=== PATIENT | male | born 1965 | race African-American/Black ===

== ENCOUNTER 2018-02-20 17:44 | Emergency (ER) | payer SELFPAY | END 2018-02-20 18:25 | disposition home or self-care (01) | LOC: ER 17:44 | DX: J32.9 Chronic sinusitis, unspecified (principal); I10 Essential (primary) hypertension | CPT/HCPCS: 99283 ==

== ENCOUNTER 2018-02-26 17:06 | Emergency (ER) | payer SELFPAY | END 2018-02-26 18:27 | disposition home or self-care (01) | LOC: ER 17:06 | DX: R42 Dizziness and giddiness (principal); R51 Headache; R11.0 Nausea; I10 Essential (primary) hypertension | CPT/HCPCS: 99282 ==

== ENCOUNTER 2019-06-17 08:21 | Emergency (ER) | payer BC ==
[~2019-06-17] VITALS: Ht 172.7 cm; Wt 80.5 kg
[~2019-06-17 08:21] MED LIST: AMOX1TAB61 PO; HYDR12.58 PO; MECL25TA3 PO; MELO7.5T29 PO
[2019-06-17] MEDS ORDERED: IV NORMAL SALINE 1000ML BAG 1,000 ML IV SCH (08:36)
[2019-06-17] MEDS ORDERED: MECLIZINE HCL 12.5 MG TABLET. PO ONE (08:45)
[2019-06-17] MEDS ORDERED: ONDANSETRON PF 4 MG/2 ML VIAL. IV ONE (08:45)
[2019-06-17 08:46] LABS: BASO % 1 % (0-3); EOS # 0.1 x10^3/uL (0.0-0.7); EOS % 2 % (0-3); HEMATOCRIT 50.4 % (39.0-53.0); HEMOGLOBIN 16.9 g/dL (13.0-17.5); LYMPH # 1.9 x10^3/uL (1.0-4.8); LYMPH % 34 % (24-48); MEAN CORPUSCULAR HEMOGLOBIN 27 pg (25-35); MEAN CORPUSCULAR HGB CONC 34 g/dL (31-37); MEAN CORPUSCULAR VOLUME 81 fL (79-100); MONO # 0.6 x10^3/uL (0.0-1.1); MONO % 10 % (0-9); NEUT # 3.1 x10^3/uL (1.8-7.7); NEUT % 54 % (31-73); PLATELET COUNT 309 x10^3/uL (140-400); RED BLOOD COUNT 6.19 x10^6/uL (4.30-5.70); RED CELL DISTRIBUTION WIDTH 15.3 % (11.5-14.5); WHITE BLOOD COUNT 5.7 x10^3/uL (4.0-11.0)
--- NOTE | 2019-06-17 08:52 | PHYS DOC ---
Past Medical History Past Medical History: Hypertension, Other Additional Past Medical Histor: BELLS PALSY Past Surgical History: No Surgical History Additional Past Surgical Histo: r knee meniscus removed Alcohol Use: Occasionally Drug Use: None Adult General Chief Complaint Chief Complaint: NAUSEA HPI HPI Patient is a 54 year old male who presents with complaining of nausea. Patient complaining of 3 episodes of nausea and dizziness while she was at work last night and stated with change of position of his head nauseous and dizzy and had drinking to left year. Patient states had episodes of dizziness. Patient said this time his dizziness was different because he had dry mouth.. Patient denies focal neurodeficit, chest pain, shortness of breath, vomiting, diarrhea and constipation, fever and chills, urinary symptom. Review of Systems Review of Systems Constitutional: Denies fever or chills [] Eyes: Denies change in visual acuity, redness, or eye pain [] HENT: Denies nasal congestion or sore throat [] Respiratory: Denies cough or shortness of breath [] Cardiovascular: No additional information not addressed in HPI [] GI: Denies abdominal pain, vomiting, bloody stools or diarrhea , reports nause a[] : Denies dysuria or hematuria [] Musculoskeletal: Denies back pain or joint pain [] Integument: Denies rash or skin lesions [] Neurologic: Denies headache, focal weakness or sensory changes [] Endocrine: Denies polyuria or polydipsia [] All other systems were reviewed and found to be within normal limits, except as documented in this note. Current Medications Current Medications Current Medications Medications (Trade) Dose Ordered Sig/Christy Start Time Stop Time Status Last Admin Dose Admin Meclizine HCl (Antivert) 25 mg 1X ONCE 06/17/19 08:45 06/17/19 08:46 DC 06/17/19 08:49 25 MG Ondansetron HCl (Zofran) 4 mg 1X ONCE 06/17/19 08:45 06/17/19 08:46 DC 06/17/19 08:49 4 MG Sodium Chloride 1,000 ml @ 1,000 mls/hr Q1H 06/17/19 08:36 06/17/19 09:35 DC 06/17/19 08:49 1,000 MLS/HR Allergies Allergies Allergies Coded Allergies Type Severity Reaction Last Updated Verified No Known Drug Allergies 10/19/17 No Physical Exam Physical Exam Constitutional: Well developed, well nourished, mild distress, non-toxic appearance. [] HENT: Normocephalic, atraumatic. Eyes: PERRLA, EOMI, conjunctiva normal, no discharge. [] Neck: Normal range of motion, no tenderness, supple, no stridor. [] Cardiovascular:Heart rate regular rhythm, no murmur [] Lungs & Thorax: Bilateral breath sounds clear to auscultation [] Abdomen: Bowel sounds normal, soft, no tenderness, no masses, no pulsatile masses. [] Skin: Warm, dry, no erythema, no rash. [] Back: No tenderness, no CVA tenderness. [] Extremities: No tenderness, no cyanosis, no clubbing, ROM intact, no edema. [] Neurologic: Alert and oriented X 3, no focal deficits noted. [] Psychologic: Affect normal, judgement normal, mood normal. [] Current Patient Data Vital Signs Vital Signs Date Time Temp Pulse Resp B/P (MAP) Pulse Ox O2 Delivery O2 Flow Rate FiO2 06/17/19 10:19 68 18 141/68 (92) 100 Room Air 06/17/19 08:31 98.3 98.3 Lab Values Laboratory Tests Test 06/17/19 08:38 06/17/19 09:45 White Blood Count 5.7 x10^3/uL (4.0-11.0) Red Blood Count 6.19 x10^6/uL (4.30-5.70) H Hemoglobin 16.9 g/dL (13.0-17.5) Hematocrit 50.4 % (39.0-53.0) Mean Corpuscular Volume 81 fL (79-100) Mean Corpuscular Hemoglobin 27 pg (25-35) Mean Corpuscular Hemoglobin Concent 34 g/dL (31-37) Red Cell Distribution Width 15.3 % (11.5-14.5) H Platelet Count 309 x10^3/uL (140-400) Neutrophils (%) (Auto) 54 % (31-73) Lymphocytes (%) (Auto) 34 % (24-48) Monocytes (%) (Auto) 10 % (0-9) H Eosinophils (%) (Auto) 2 % (0-3) Basophils (%) (Auto) 1 % (0-3) Neutrophils # (Auto) 3.1 x10^3/uL (1.8-7.7) Lymphocytes # (Auto) 1.9 x10^3/uL (1.0-4.8) Monocytes # (Auto) 0.6 x10^3/uL (0.0-1.1) Eosinophils # (Auto) 0.1 x10^3/uL (0.0-0.7) Basophils # (Auto) 0.0 x10^3/uL (0.0-0.2) Sodium Level 143 mmol/L (136-145) Potassium Level 4.2 mmol/L (3.5-5.1) Chloride Level 106 mmol/L (98-107) Carbon Dioxide Level 25 mmol/L (21-32) Anion Gap 12 (6-14) Blood Urea Nitrogen 14 mg/dL (8-26) Creatinine 1.1 mg/dL (0.7-1.3) Estimated GFR (Cockcroft-Gault) 83.8 BUN/Creatinine Ratio 13 (6-20) Glucose Level 90 mg/dL (70-99) Calcium Level 9.6 mg/dL (8.5-10.1) Magnesium Level 2.2 mg/dL (1.8-2.4) Total Bilirubin 0.5 mg/dL (0.2-1.0) Aspartate Amino Transferase (AST) 30 U/L (15-37) Alanine Aminotransferase (ALT) 24 U/L (16-63) Alkaline Phosphatase 71 U/L (46-116) Creatine Kinase 1660 U/L (39-308) H Troponin I Quantitative < 0.017 ng/mL (0.000-0.055) MA-Hsg-L-Type Natriuretic Peptide 25 pg/mL (0-124) Total Protein 7.8 g/dL (6.4-8.2) Albumin 4.4 g/dL (3.4-5.0) Albumin/Globulin Ratio 1.3 (1.0-1.7) Lipase 91 U/L (73-393) Urine Collection Type Unknown Urine Color Yellow Urine Clarity Clear Urine pH 5.0 Urine Specific [place] 1.025 Urine Protein Negative mg/dL (NEG-TRACE) Urine Glucose (UA) Negative mg/dL (NEG) Urine Ketones (Stick) Trace mg/dL (NEG) Urine Blood Negative (NEG) Urine Nitrite Negative (NEG) Urine Bilirubin Negative (NEG) Urine Urobilinogen Dipstick 0.2 mg/dL (0.2 mg/dL) Urine Leukocyte Esterase Negative (NEG) Urine RBC Rare /HPF (0-2) Urine WBC Occ /HPF (0-4) Urine Squamous Epithelial Cells None /LPF Urine Bacteria Few /HPF (0-FEW) Urine Mucus Mod /LPF Laboratory Tests 06/17/19 08:38 Laboratory Tests 06/17/19 08:38 EKG EKG EKG interpreted by me. EKG at 0 836 showed normal sinus rhythm at rate of 88, normal IL and QT intervals, no acute ST-T wave abnormalities. Radiology/Procedures Radiology/Procedures [][address] [address] IMAGING REPORT Signed PATIENT: MEIR CHOU ACCOUNT: [id number] : 1965 LOCATION: ER AGE: 54 SEX: M EXAM STATUS: REG ER ORD. PHYSICIAN: VIKAS WHITMAN MD REASON: dizziness, nausea starting this morning PROCEDURE: CHEST AP ONLY EXAM: AP View of the chest DATE: 06/17/2019 9:06 AM INDICATION: dizziness, nausea starting this morning COMPARISON: 10/19/2017 FINDINGS: The heart is not enlarged. Mediastinal and hilar contours are normal. No focal parenchymal airspace opacity. No pleural effusion or pneumothorax. IMPRESSION: 1. No radiographic evidence for acute cardiopulmonary process. Electronically signed by: Felice Garcia MD (06/17/2019 9:34 AM) [facility] DICTATED and SIGNED BY: FELICE GARCIA MD DATE: 06/17/[address] [place] [id number] IMAGING REPORT Signed PATIENT: MEIR CHOU ACCOUNT: [id number] : 1965 LOCATION: ER AGE: 54 SEX: M EXAM STATUS: REG ER ORD. PHYSICIAN: VIKAS WHITMAN MD REASON: dizziness PROCEDURE: CT HEAD WO CONTRAST CT HEAD WO CONTRAST History: Dizziness Comparison: October 19, 2017 Technique: Noncontrast CT imaging was performed of the head. Exposure: One or more of the following individualized dose reduction techniques were utilized for this examination: 1. Automated exposure control 2. Adjustment of the mA and/or kV according to patient size 3. Use of iterative reconstruction technique. Findings: No acute extra-axial or parenchymal hemorrhage is identified. There is no significant intra-axial mass effect, midline shift, or extra-axial fluid collection. The butler-white differentiation of the major vascular territories is preserved. The ventricles, sulci, and cisterns are within normal limits in size and configuration. The mastoid air cells and the visualized paranasal sinuses are aerated. No acute calvarial abnormality is identified. Impression: 1. No acute intracranial abnormality is identified. Electronically signed by: Zhang Pedroza MD (06/17/2019 9:25 AM) [facility] DICTATED and SIGNED BY: ZHANG PEDROZA MD DATE: 06/17/19924 Course & Med Decision Making Course & Med Decision Making Pertinent Labs and Imaging studies reviewed. (See chart for details) Evaluation of patient in ER showed 54-year-old male patient with history of benign positional vertigo presented to ER with episodes of dizziness since last night. Patient had unremarkable physical exam except for mild anxiety. Patient had elevation of CPK and stated he has a physical work. Patient treated with IV fluid and Zofran and meclizine and felt better. Orthostatic vital signs was negative. I've spoken with the patient and/or caregivers. I've explained the patient's condition, diagnosis and treatment plan based on information available to me at this time. I've answered the patient's and/or caregivers questions and addressed any concerns. The patient and/or caregivers have a good understanding the patient's diagnosis, condition and treatment plan as can be expected at this po int. Vital signs have been stabilized. The patient's condition is stable for discharge from the emergency department. The patient will pursue further outpatient evaluation with her primary care provider or other designated consulting physician as outlined in the discharge instructions. Patient and/or caregivers are agreeable to this plan of care and follow-up instructions have been explained in detail. The patient and/or caregivers have received these instructions in written format and expressed understanding of these discharge instructions. The patient and her caregivers are aware that if any significant change in condition or worsening of symptoms should prompt him to immediately return to this of the closest emergency department. If an emergent department is not readily available I would encourage him to call 911. Heather Disclaimer Heather Disclaimer This electronic medical record was generated, in whole or in part, using a voice recognition dictation system. Departure Departure Impression: Primary Impression: Benign positional vertigo Additional Impressions: Rhabdomyolysis Nausea Disposition: HOME, SELF-CARE (at 1027) Condition: IMPROVED Referrals: UNKNOWN PCP NAME (PCP) Patient Instructions: Benign Positional Vertigo, Nausea, Adult, Rhabdomyolysis Additional Instructions: Drink plenty of liquids Follow-up with your primary care physician in 3-5 days Return to ER if not getting better Scripts Ondansetron Hcl (ZOFRAN) 4 Mg Tablet 1 TAB PO PRN Q6-8HRS for nausea, #12 TAB Prov: VIKAS WHITMAN MD 06/17/19 Meclizine Hcl (MECLIZINE HCL) 25 Mg Tablet 1 TAB PO TID for dizziness, #20 TAB Prov: VIKAS WHITMAN MD 06/17/19 Problem Qualifiers Primary Impression: Benign positional vertigo Laterality: unspecified laterality Qualified Codes: H81.10 - Benign paroxysmal vertigo, unspecified ear Additional Impressions: Rhabdomyolysis Rhabdomyolysis type: non-traumatic Qualified Codes: M62.82 - Rhabdomyolysis VIKAS WHITMAN MD Jun 17, 2019 08:52
[2019-06-17 08:56] LABS: CALCIUM 9.6 mg/dL (8.5-10.1); CREATININE 1.1 mg/dL (0.7-1.3); GFR 83.8; POTASSIUM 4.2 mmol/L (3.5-5.1)
[2019-06-17 09:11] LABS: ALBUMIN 4.4 g/dL (3.4-5.0); ALBUMIN/GLOBULIN RATIO 1.3 (1.0-1.7); MAGNESIUM 2.2 mg/dL (1.8-2.4); TOTAL BILIRUBIN 0.5 mg/dL (0.2-1.0); TOTAL PROTEIN 7.8 g/dL (6.4-8.2)
--- NOTE | 2019-06-17 09:28 | RAD ---
CT HEAD WO CONTRAST History: Dizziness Comparison: October 19, 2017 Technique: Noncontrast CT imaging was performed of the head. Exposure: One or more of the following individualized dose reduction techniques were utilized for this examination: 1. Automated exposure control 2. Adjustment of the mA and/or kV according to patient size 3. Use of iterative reconstruction technique. Findings: No acute extra-axial or parenchymal hemorrhage is identified. There is no significant intra-axial mass effect, midline shift, or extra-axial fluid collection. The butler-white differentiation of the major vascular territories is preserved. The ventricles, sulci, and cisterns are within normal limits in size and configuration. The mastoid air cells and the visualized paranasal sinuses are aerated. No acute calvarial abnormality is identified. Impression: 1. No acute intracranial abnormality is identified. Electronically signed by: Keith Pedroza MD (06/17/2019 9:25 AM) [facility]
--- NOTE | 2019-06-17 09:36 | RAD ---
EXAM: AP View of the chest DATE: 06/17/2019 9:06 AM INDICATION: dizziness, nausea starting this morning COMPARISON: 10/19/2017 FINDINGS: The heart is not enlarged. Mediastinal and hilar contours are normal. No focal parenchymal airspace opacity. No pleural effusion or pneumothorax. IMPRESSION: 1. No radiographic evidence for acute cardiopulmonary process. Electronically signed by: Felice Cade MD (06/17/2019 9:34 AM) [facility]
[2019-06-17 09:57] LABS: BILIRUBIN,URINE NEGATIVE (NEG); CLARITY,URINE CLEAR; COLOR,URINE YELLOW; NITRITE,URINE NEGATIVE (NEG); PROTEIN,URINE NEGATIVE (NEG-TRACE); UROBILINOGEN,URINE 0.2 mg/dL (0.2 mg/dL)
--- NOTE | 2019-06-17 10:13 | EKG ---
[facility] [address] [place] [address] Test Date: 2019-06-17 Test Time: 08:36:19 Pat Name: MEIR CHOU Department: Room: Gender: M Charge Hand: : 1965 Requested By: VIKAS WHITMAN Order Number: [id number] Reading MD: Surinder Brandt MD Measurements Intervals [place] Rate: 88 P: 15 CO: 162 QRS: 52 QRSD: 82 T: 49 QT: 346 QTc: 421 Interpretive Statements SINUS RHYTHM Electronically Signed On 06-22-2019 9:47:28 CDT by Surinder Brandt MD
[2019-06-17 10:14] LABS: BACTERIA,URINE FEW /HPF (0-FEW); RBC,URINE RARE /HPF (0-2); WBC,URINE OCC /HPF (0-4)
[2019-06-17 10:19] VITALS: BP 141/68
[2019-06-17] MEDS ORDERED: MECL25TA3 PO (10:30)
[2019-06-17] MEDS ORDERED: ONDA4TAB7 PO (10:30)
== END 2019-06-17 10:46 | disposition home or self-care (01) ==
LOC: ER 08:21
DX: H81.12 Benign paroxysmal vertigo, left ear (principal); M62.82 Rhabdomyolysis; R11.0 Nausea
CPT/HCPCS: 36415; 70450; 71045; 80053; 81001; 82550; 83690; 83735; 83880; 84484; 85025; 93005; 96374; 99285; J2405; J7030; J8597

== ENCOUNTER 2019-09-15 09:38 | Emergency (ER) | payer BC, OTHER ==
[~2019-09-15] VITALS: Ht 172.7 cm; Wt 83.9 kg
[~2019-09-15 09:38] MED LIST changes: +ONDA4TAB7 PO
[2019-09-15 09:54] VITALS: BP 120/83
--- NOTE | 2019-09-15 10:30 | PHYS DOC ---
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 Patient has 2+ swelling to the dorsal hand and dorsal wrist. Patient rates his pain a 6 out of 10. Patient states he continued working last night. He states that they cleaned the abrasion on his dorsal wrist and applied antibiotic ointment. Patient states his last tetanus shot was in 2017. Review of Systems Review of Systems Musculoskeletal:Right wrist pain and hand pain. Denies back pain or joint pain [] Integument: abrasion to right dorsal wrist. Denies rash or skin lesions [] All other systems were reviewed and found to be within normal limits, except as documented in this note. Allergies Allergies Allergies Coded Allergies Type Severity Reaction Last Updated Verified No Known Drug Allergies 10/19/17 No Physical Exam Physical Exam Constitutional: Well developed, well nourished, no acute distress, non-toxic appearance. [] Skin: Abrasion to right dorsal wrist pain. Warm, dry, no erythema, no rash. [] Extremities: Right dorsal hand and right dorsal wrist tenderness, no cyanosis, no clubbing, ROM intact, Right dorsal wrist and pain 2+ edema. [] Neurologic: Alert and oriented X 3, normal motor function, normal sensory function, no focal deficits noted. [] Psychologic: Affect normal, judgement normal, mood normal. [] Current Patient Data Vital Signs Vital Signs Date Time Temp Pulse Resp B/P (MAP) Pulse Ox O2 Delivery O2 Flow Rate FiO2 09/15/19 10:17 98.1 82 18 120/83 (95) 99 Room Air 98.1 EKG EKG [] Radiology/Procedures Radiology/Procedures [] Impressions: [facility] [address] [place] [address] IMAGING REPORT Signed PATIENT: MEIR CHOU ACCOUNT: [id number] : 1965 LOCATION: ER AGE: 54 SEX: M EXAM STATUS: REG ER ORD. PHYSICIAN: TAJ MELGAR APRN REASON: right hand pain, work related injury x1 day PROCEDURE: HAND RIGHT 3V Exam performed: Right hand and wrist 3 views. Indication: Right hand and wrist injury at work one day ago Date of Service: 09/15/2019 Comparison: None available Findings: AP, lateral and oblique views of the right hand and wrist are obtained. There is a mild cortical offset in the base of distal phalanx of the right hand with associated soft tissue swelling. No soft tissue foreign body is seen. AP, lateral and oblique views of the right wrist demonstrates normal alignment of the wrist joint . There is no acute fracture or dislocation. There is mild soft tissue swelling, no definite foreign body is seen. Impression: Mild cortical offset base of first distal phalanx representing a fracture. Acuity unknown. Correlate clinically. No acute abnormality seen in the right wrist Electronically signed by: Aida Dumont MD (09/15/2019 11:36 AM) [facility] DICTATED and SIGNED BY: AIDA DUMONT MD DATE: 09/15/19 1136 Course & Med Decision Making Course & Med Decision Making Alert and oriented. Patient can move at the wrist with full range of motion but it is painful. Patient can make a fist with his hand. Patient denies any numbness or tingling. Patient has tenderness to the dorsal hand with 2+ swelling and tenderness to the dorsal wrist that also has 2+ swelling. The abrasion to the dorsal wrist is approximately 4.5 inches long and 2 inches wide. No signs of infection. There is no drainage or bleeding. Radial pulses strong and present. Cap refill is less than 3 seconds. X-ray shows Mild cortical offset base of first distal phalanx representing a fracture. Acuity unknown. Correlate clinically. Aluminum form splint is placed on thumb. Patient is told to keep it on for the next 4 weeks and uses follow-up with his primary care doctor or orthopedic doctor. I have prescribed him antibiotic ointment to apply twice a day to his abrasion and he is to keep it clean and covered. Dragon Disclaimer Dragon Disclaimer This electronic medical record was generated, in whole or in part, using a voice recognition dictation system. Departure Departure Impression: Primary Impression: Hand pain, right Additional Impressions: Wrist pain, right Abrasion Phalanx, distal fracture of finger Disposition: 01 HOME, SELF-CARE Condition: IMPROVED Referrals: UNKNOWN PCP NAME (PCP) MARIE NAM MD Patient Instructions: Finger Fracture (Phalangeal)-[facility] Additional Instructions: Follow-up with primary care or orthopedic this coming week if needed. Keep the splint applied for the next 4 weeks for the thumb to heal. Scripts Ibuprofen (IBUPROFEN) 600 Mg Tablet 600 MG PO PRN Q6HRS PRN for INFLAMMATION for 7 Days, #25 TAB Prov: TAJ MELGAR APRN 09/15/19 Neomy Sulf/Bacitrac Zn/Poly (ANTIBIOTIC OINTMENT) 28 Gm Oint...g. 28 GM TP BID for 7 Days, #1 MISC Prov: TAJ MELGAR APRN 09/15/19 Problem Qualifiers Additional Impressions: Phalanx, distal fracture of finger Encounter type: initial encounter Finger: thumb Fracture type: closed Fracture alignment: nondisplaced Laterality: right Qualified Codes: S62.524A - Nondisplaced fracture of distal phalanx of right thumb, initial encounter for closed fracture TAJ MELGAR APRN Sep 15, 2019 10:30
--- NOTE | 2019-09-15 11:39 | RAD ---
Exam performed: Right hand and wrist 3 views. Indication: Right hand and wrist injury at work one day ago Date of Service: 09/15/2019 Comparison: None available Findings: AP, lateral and oblique views of the right hand and wrist are obtained. There is a mild cortical offset in the base of distal phalanx of the right hand with associated soft tissue swelling. No soft tissue foreign body is seen. AP, lateral and oblique views of the right wrist demonstrates normal alignment of the wrist joint . There is no acute fracture or dislocation. There is mild soft tissue swelling, no definite foreign body is seen. Impression: Mild cortical offset base of first distal phalanx representing a fracture. Acuity unknown. Correlate clinically. No acute abnormality seen in the right wrist Electronically signed by: Aida Dumont MD (09/15/2019 11:36 AM) [facility]
[2019-09-15] MEDS ORDERED: NEOM28OI31 TP (11:49)
[2019-09-15] MEDS ORDERED: IBUP-1007 PO (11:49)
== END 2019-09-15 12:15 | disposition home or self-care (01) ==
LOC: ER 09:38
DX: S62.524A Nondisplaced fracture of distal phalanx of right thumb, initial encounter for closed fracture (principal); M79.641 Pain in right hand; M25.531 Pain in right wrist; S60.811A Abrasion of right wrist, initial encounter; I10 Essential (primary) hypertension; W31.89XA Contact with other specified machinery, initial encounter; Y93.89 Activity, other specified; Y92.89 Other specified places as the place of occurrence of the external cause; Y99.8 Other external cause status
CPT/HCPCS: 29130; 73110; 73130; 99284

== ENCOUNTER 2019-12-24 10:05 | Inpatient (IN) | payer BC, OTHER ==
[~2019-12-24] VITALS: Ht 172.7 cm; Wt 96.4 kg
[~2019-12-24 10:05] MED LIST changes: +IBUP-1007 PO; +MECL-75 PO; -MECL25TA3 PO; +NEOM28OI31 TP
--- NOTE | 2019-12-24 11:08 | PHYS DOC ---
Past Medical History Past Medical History: Hypertension, Other Additional Past Medical Histor: BELLS PALSY Past Surgical History: No Surgical History Additional Past Surgical Histo: r knee meniscus removed Smoking Status: Current Every Day Smoker Alcohol Use: Occasionally Drug Use: None Adult General Chief Complaint Chief Complaint: DIARRHEA HPI HPI Patient is a 54 year old m p/w diarrhea profuse nonbloody last night it was every thirty minutes has been sweating on and off for a week has a dry mouth no vomiting. diarrhea is still there now but not as bad as it was before no abdominal pain also reports chest pain usually at work, this past week, soreness across the chest 4 min at a time radiates both shoulders, comes and goes usually when sta nding up or with exerting himself and sweating happened with the chest pain. Last had of this morning pmh: htn, tobacco one pack per week. family history: lela got diabetes but no cad that he knows of meds:lisinopril not taking it like he should pmd: [facility] waiting to get a new one. Review of Systems Review of Systems Constitutional: Denies fever or chills [] Eyes: Denies change in visual acuity, redness, or eye pain [] HENT: Denies nasal congestion or sore throat [] Respiratory: Denies cough or shortness of breath [] Cardiovascular: No additional information not addressed in HPI [] GI: Denies abdominal pain, nausea, vomiting, bloody stools or diarrhea [] : Denies dysuria or hematuria [] Musculoskeletal: Denies back pain or joint pain [] Integument: Denies rash or skin lesions [] Neurologic: Denies headache, focal weakness or sensory changes [] Endocrine: Denies polyuria or polydipsia [] All other systems were reviewed and found to be within normal limits, except as documented in this note. Current Medications Current Medications Current Medications Medications (Trade) Dose Ordered Sig/Christy Start Time Stop Time Status Last Admin Dose Admin Aspirin (Children'S Aspirin) 324 mg 1X ONCE 12/24/19 11:45 12/24/19 11:46 DC 12/24/19 11:40 324 MG Ondansetron HCl (Zofran) 4 mg 1X ONCE 12/24/19 11:15 12/24/19 11:16 DC 12/24/19 11:34 4 MG Sodium Chloride 1,000 ml @ 1,000 mls/hr 1X ONCE 12/24/19 11:15 12/24/19 12:14 DC 12/24/19 11:34 1,000 MLS/HR Allergies Allergies Allergies Coded Allergies Type Severity Reaction Last Updated Verified No Known Drug Allergies 10/19/17 No Physical Exam Physical Exam Constitutional: Well developed, well nourished, no acute distress, non-toxic appearance. [] HENT: Normocephalic, atraumatic, bilateral external ears normal, oropharynx moist, no oral exudates, nose normal. [] Eyes: PERRLA, EOMI, conjunctiva normal, no discharge. [] Neck: Normal range of motion, no tenderness, supple, no stridor. [] Cardiovascular:Heart rate regular rhythm, no murmur [] Lungs & Thorax: Bilateral breath sounds clear to auscultation [] Abdomen: Bowel sounds normal, soft, no tenderness, no masses, no pulsatile masses. [] Skin: Warm, dry, no erythema, no rash. [] Back: No tenderness, no CVA tenderness. [] Extremities: No tenderness, no cyanosis, no clubbing, ROM intact, no edema. [] Neurologic: Alert and oriented X 3, normal motor function, normal sensory func tion, no focal deficits noted. [] Psychologic: Affect normal, judgement normal, mood normal. [] Current Patient Data Vital Signs Vital Signs Date Time Temp Pulse Resp B/P (MAP) Pulse Ox O2 Delivery O2 Flow Rate FiO2 12/24/19 12:46 58 22 138/84 (102) 97 12/24/19 11:06 98.0 Room Air 98.0 Lab Values Laboratory Tests Test 12/24/19 11:35 12/24/19 12:10 Influenza Type A Antigen Negative (NEGATIVE) Influenza Type B Antigen Negative (NEGATIVE) White Blood Count 4.1 x10^3/uL (4.0-11.0) Red Blood Count 5.72 x10^6/uL (4.30-5.70) H Hemoglobin 15.8 g/dL (13.0-17.5) Hematocrit 47.3 % (39.0-53.0) Mean Corpuscular Volume 83 fL (79-100) Mean Corpuscular Hemoglobin 28 pg (25-35) Mean Corpuscular Hemoglobin Concent 33 g/dL (31-37) Red Cell Distribution Width 14.9 % (11.5-14.5) H Platelet Count 295 x10^3/uL (140-400) Neutrophils (%) (Auto) 42 % (31-73) Lymphocytes (%) (Auto) 44 % (24-48) Monocytes (%) (Auto) 9 % (0-9) Eosinophils (%) (Auto) 5 % (0-3) H Basophils (%) (Auto) 1 % (0-3) Neutrophils # (Auto) 1.7 x10^3/uL (1.8-7.7) L Lymphocytes # (Auto) 1.8 x10^3/uL (1.0-4.8) Monocytes # (Auto) 0.4 x10^3/uL (0.0-1.1) Eosinophils # (Auto) 0.2 x10^3/uL (0.0-0.7) Basophils # (Auto) 0.0 x10^3/uL (0.0-0.2) Prothrombin Time 12.7 SEC (11.7-14.0) Prothrombin Time INR 1.0 (0.8-1.1) Activated Partial Thromboplast Time 25 SEC (24-38) Sodium Level 138 mmol/L (136-145) Potassium Level 5.0 mmol/L (3.5-5.1) Chloride Level 104 mmol/L (98-107) Carbon Dioxide Level 27 mmol/L (21-32) Anion Gap 7 (6-14) Blood Urea Nitrogen 17 mg/dL (8-26) Creatinine 0.9 mg/dL (0.7-1.3) Estimated GFR (Cockcroft-Gault) 105.6 BUN/Creatinine Ratio 19 (6-20) Glucose Level 114 mg/dL (70-99) H Calcium Level 8.3 mg/dL (8.5-10.1) L Total Bilirubin 0.3 mg/dL (0.2-1.0) Aspartate Amino Transferase (AST) 26 U/L (15-37) Alanine Aminotransferase (ALT) 40 U/L (16-63) Alkaline Phosphatase 72 U/L (46-116) Troponin I Quantitative < 0.017 ng/mL (0.000-0.055) Total Protein 6.5 g/dL (6.4-8.2) Albumin 3.4 g/dL (3.4-5.0) Albumin/Globulin Ratio 1.1 (1.0-1.7) Lipase 122 U/L (73-393) Laboratory Tests 12/24/19 12:10 Laboratory Tests 12/24/19 12:10 EKG EKG EKG shows a normal sinus rhythm rate of 79 and noted some borderline ST elevation in 1 and aVL with flipped T waves in 3 and aVF which is different compared to June 17, 2019. I did briefly review this EKG with Dr. Pollock who was down in the emergency room for a different patient. He recommended heparin and formal cardiology consultation[] Radiology/Procedures Radiology/Procedures [] Impressions: Findings: No consolidation or pleural effusion. Normal heart size. No pneumothorax. Impression: 1. No acute cardiopulmonary process. Electronically signed by: Mono Villarreal DO (12/24/2019 12:24 PM) [id number] DICTATED and SIGNED BY: MONO VILLARREAL DO DATE: 12/24/19 1224 Course & Med Decision Making Course & Med Decision Making Pertinent Labs and Imaging studies reviewed. (See chart for details) []Heart score is a H2 e 1 A1 r 1T0 equals 5 Patient is currently chest pain-free in the emergency room EKG is different from prior. Think he warrants stress testing given his history and EKG changes. Of note he did initially complain of some diarrhea although after I sat with him for several minutes he seemed to be more concerned about the chest pain actually . Discussed with Dr. Funes for admission Dragon Disclaimer Dragon Disclaimer This electronic medical record was generated, in whole or in part, using a voice recognition dictation system. Departure Departure Impression: Primary Impression: Chest pain Additional Impression: Diarrhea Disposition: ADMITTED INPATIENT Admitting Physician: HIMS Condition: STABLE Referrals: UNKNOWN PCP NAME (PCP) Problem Qualifiers ЕЛЕНА JONES MD Dec 24, 2019 11:08
[2019-12-24] MEDS ORDERED: IV NORMAL SALINE 1000ML BAG 1,000 ML IV ONE (11:15)
[2019-12-24] MEDS ORDERED: ONDANSETRON PF 4 MG/2 ML VIAL. IV ONE (11:15)
[2019-12-24] MEDS ORDERED: ASPIRIN CHEWABLE 81 MG TABLET. PO ONE (11:45)
[2019-12-24 12:16] LABS: INFLUENZA A PATIENT NEGATIVE (NEGATIVE); INFLUENZA B PATIENT NEGATIVE (NEGATIVE)
--- NOTE | 2019-12-24 12:23 | EKG ---
[facility] [address] [place] [address] Test Date: 2019-12-24 Test Time: 11:19:54 Pat Name: MEIR CHOU Department: Room: Gender: M Van Owner Operator: : 1965 Requested By: ЕЛЕНА JONES Order Number: [id number] Reading MD: Surinder Brandt MD Measurements Intervals [place] Rate: 78 P: 36 WA: 180 QRS: 0 QRSD: 80 T: 4 QT: 358 QTc: 411 Interpretive Statements SINUS RHYTHM Electronically Signed On 12-24-2019 15:44:25 [employer]ICK [employer]LOAD[employer] TENDER by Surinder Brandt MD
[2019-12-24 12:24] LABS: BASO % 1 % (0-3); EOS # 0.2 x10^3/uL (0.0-0.7); EOS % 5 % (0-3); HEMATOCRIT 47.3 % (39.0-53.0); HEMOGLOBIN 15.8 g/dL (13.0-17.5); LYMPH # 1.8 x10^3/uL (1.0-4.8); LYMPH % 44 % (24-48); MEAN CORPUSCULAR HEMOGLOBIN 28 pg (25-35); MEAN CORPUSCULAR HGB CONC 33 g/dL (31-37); MEAN CORPUSCULAR VOLUME 83 fL (79-100); MONO # 0.4 x10^3/uL (0.0-1.1); MONO % 9 % (0-9); NEUT # 1.7 x10^3/uL (1.8-7.7); NEUT % 42 % (31-73); PLATELET COUNT 295 x10^3/uL (140-400); RED BLOOD COUNT 5.72 x10^6/uL (4.30-5.70); RED CELL DISTRIBUTION WIDTH 14.9 % (11.5-14.5); WHITE BLOOD COUNT 4.1 x10^3/uL (4.0-11.0)
--- NOTE | 2019-12-24 12:27 | RAD ---
PORTABLE CHEST 1V History: Chest pain Comparison: June 17, 2019 Findings: No consolidation or pleural effusion. Normal heart size. No pneumothorax. Impression: 1. No acute cardiopulmonary process. Electronically signed by: Mono Villarreal DO (12/24/2019 12:24 PM) [id number]
[2019-12-24 12:44] LABS: CALCIUM 8.3 mg/dL (8.5-10.1); CREATININE 0.9 mg/dL (0.7-1.3); GFR 105.6
[2019-12-24 12:54] LABS: ALBUMIN 3.4 g/dL (3.4-5.0); ALBUMIN/GLOBULIN RATIO 1.1 (1.0-1.7); TOTAL BILIRUBIN 0.3 mg/dL (0.2-1.0); TOTAL PROTEIN 6.5 g/dL (6.4-8.2)
[2019-12-24] MEDS ORDERED: HEPARIN for IV BOLUS 10,000 UNIT/10 ML VIAL. IV PRN (13:15)
[2019-12-24] MEDS ORDERED: HEPARIN for IV BOLUS 10,000 UNIT/10 ML VIAL. IV ONE (13:15)
[2019-12-24] MEDS ORDERED: HEPARIN 25,000UTS/250ML PREMIX 250 ML IV PRN (13:15)
[2019-12-24] MEDS ORDERED: ANTI-COAG MONITOR BY PHARMACY. MC PRN (13:30)
[2019-12-24 13:47] LABS: PROTHROMBIN TIME PATIENT 12.7 SEC (11.7-14.0)
--- NOTE | 2019-12-24 14:07 | PDOC2 ---
ALYSSA DAMIAN ANIMAL CARE ATTENDANT 12/24/19 1407: CARDIAC CONSULT DATE OF CONSULT Date of Consult DATE: 12/24/19 TIME: 14:03 REASON FOR CONSULT Reason for Consult: Chest pain REFERRING PHYSICIAN Referring Physician: Dr. Cornejo SOURCE Source: Chart review, Patient HISTORY OF PRESENT ILLNESS HISTORY OF PRESENT ILLNESS This is a 54 yo male who presented secondary to diarrhea. Also reports intermittent pain across his upper chest pain and aching in his bilateral upper arms for the last week, which prompted this consult. Has also been more diaphoretic for the last week. Developed diarrhea yesterday, which prompted him to go to the ED for further evaluation and treatment. Patient reports aching pain across upper chest lasts for about 3-4 minutes and resolved without intervention. Seems to be worse when he wakes up in the morning. No specific precipitation or worsening factors. No shortness of breath, dizziness, or nausea/vomiting. PAST MEDICAL HISTORY Cardiovascular: HTN CENTRAL NERVOUS SYSTEM: Other (Moncure Palsy ) Musculoskeletal: Osteoarthritis PAST SURGICAL HISTORY Past Surgical History: No pertinent history FAMILY HISTORY Family History: Diabetes, Heart Disease (mom) SOCIAL HISTORY Smoke: No ALCOHOL: none Drugs: None Lives: with Family CURRENT MEDICATIONS CURRENT MEDICATIONS Current Medications Medications (Trade) Dose Ordered Sig/Christy Route PRN Reason Start Time Stop Time Status Last Admin Dose Admin Sodium Chloride 1,000 ml @ 1,000 mls/hr 1X ONCE IV 12/24/19 11:15 12/24/19 12:14 DC 12/24/19 11:34 Ondansetron HCl (Zofran) 4 mg 1X ONCE IV 12/24/19 11:15 12/24/19 11:16 DC 12/24/19 11:34 Aspirin (Children'S Aspirin) 324 mg 1X ONCE PO 12/24/19 11:45 12/24/19 11:46 DC 12/24/19 11:40 ALLERGIES ALLERGIES: Coded Allergies: No Known Drug Allergies (Unverified , 10/19/17) ROS Review of System 14 point ROS conducted with pertinent positives noted above in HPI PHYSICAL EXAM General: Alert, Oriented X3, Cooperative HEENT: Atraumatic Lungs: Clear to auscultation, Normal air movement Heart: Regular rate, Normal S1, Normal S2 Abdomen: Soft, No tenderness Extremities: No edema, Normal pulses Skin: No significant lesion Neuro: Normal speech, Sensation intact Psych/Mental Status: Mental status NL, Mood NL MUSCULOSKELETAL: Osteoarthritic changes both hands VITALS/I&O VITALS/I&O: Vital Signs Date Time Temp Pulse Resp B/P (MAP) Pulse Ox O2 Delivery O2 Flow Rate FiO2 12/24/19 12:46 58 22 138/84 (102) 97 12/24/19 11:06 98.0 Room Air 98.0 LABS Lab: Laboratory Tests Test 12/24/19 11:35 12/24/19 12:10 Influenza Type A Antigen Negative (NEGATIVE) Influenza Type B Antigen Negative (NEGATIVE) White Blood Count 4.1 x10^3/uL (4.0-11.0) Red Blood Count 5.72 x10^6/uL (4.30-5.70) H Hemoglobin 15.8 g/dL (13.0-17.5) Hematocrit 47.3 % (39.0-53.0) Mean Corpuscular Volume 83 fL (79-100) Mean Corpuscular Hemoglobin 28 pg (25-35) Mean Corpuscular Hemoglobin Concent 33 g/dL (31-37) Red Cell Distribution Width 14.9 % (11.5-14.5) H Platelet Count 295 x10^3/uL (140-400) Neutrophils (%) (Auto) 42 % (31-73) Lymphocytes (%) (Auto) 44 % (24-48) Monocytes (%) (Auto) 9 % (0-9) Eosinophils (%) (Auto) 5 % (0-3) H Basophils (%) (Auto) 1 % (0-3) Neutrophils # (Auto) 1.7 x10^3/uL (1.8-7.7) L Lymphocytes # (Auto) 1.8 x10^3/uL (1.0-4.8) Monocytes # (Auto) 0.4 x10^3/uL (0.0-1.1) Eosinophils # (Auto) 0.2 x10^3/uL (0.0-0.7) Basophils # (Auto) 0.0 x10^3/uL (0.0-0.2) Prothrombin Time 12.7 SEC (11.7-14.0) Prothrombin Time INR 1.0 (0.8-1.1) Activated Partial Thromboplast Time 25 SEC (24-38) Sodium Level 138 mmol/L (136-145) Potassium Level 5.0 mmol/L (3.5-5.1) Chloride Level 104 mmol/L (98-107) Carbon Dioxide Level 27 mmol/L (21-32) Anion Gap 7 (6-14) Blood Urea Nitrogen 17 mg/dL (8-26) Creatinine 0.9 mg/dL (0.7-1.3) Estimated GFR (Cockcroft-Gault) 105.6 BUN/Creatinine Ratio 19 (6-20) Glucose Level 114 mg/dL (70-99) H Calcium Level 8.3 mg/dL (8.5-10.1) L Total Bilirubin 0.3 mg/dL (0.2-1.0) Aspartate Amino Transferase (AST) 26 U/L (15-37) Alanine Aminotransferase (ALT) 40 U/L (16-63) Alkaline Phosphatase 72 U/L (46-116) Troponin I Quantitative < 0.017 ng/mL (0.000-0.055) Total Protein 6.5 g/dL (6.4-8.2) Albumin 3.4 g/dL (3.4-5.0) Albumin/Globulin Ratio 1.1 (1.0-1.7) Lipase 122 U/L (73-393) Laboratory Tests 12/24/19 12:10 Laboratory Tests 12/24/19 12:10 ASSESSMENT/PLAN ASSESSMENT/PLAN 1. Chest pain, atypical. Initial troponin negative. 2. Hypertension; controlled overall 3. Persistent diarrhea Recommendations Lipids, TSH Trend troponin Baseline echo to assess LV systolic function ASA Discontinue heparin gtt Will plan for outpatient ischemic evaluation and followup. KYRA LI MD 12/25/19 0939: CARDIAC CONSULT ASSESSMENT/PLAN ASSESSMENT/PLAN Late entry for 12/24/2019 Patient seen and examined. Agree with above nurse practitioner note. No significant cardiac chest pain. It appears to be quite atypical but given his multiple risk factors could consider outpatient evaluation but certainly does not merit any intravenous anticoagulation at this time. EKG is unremarkable. ALYSSA DAMIAN APRN Dec 24, 2019 14:07 KYRA LI MD Dec 25, 2019 09:39
--- NOTE | 2019-12-24 17:06 | HP ---
ADMIT DATE: 12/24/2019 CHIEF COMPLAINT: Diarrhea. HISTORY OF PRESENT ILLNESS: The patient is a pleasant 54-year-old male who presented to the ER with diarrhea, has been occurring since last night about every 30 minutes. He has some associated sweating and a dry mouth. He also has developed some chest pain, rates all of his symptoms at 7/10, described as irritating. Food makes it worse and sitting still makes it better. He tried taking some [id number] meds that did not help. We are going to admit the patient with consultation to Cardiology. PAST MEDICAL HISTORY: Hypertension, Scott's palsy, right knee meniscus removal. ALLERGIES: None. FAMILY HISTORY: Coronary artery disease. SOCIAL HISTORY: Does not drink, smoke or take drugs. MEDICATIONS: Reviewed, please refer to the MRAD. REVIEW OF SYSTEMS: GENERAL: No history of weight change, weakness or fevers. SKIN: No bruising, hair changes or rashes. EYES: No blurred, double or loss of vision. NOSE AND THROAT: No history of nosebleeds, hoarseness or sore throat. HEART: He complains of chest pain. LUNGS: Denies cough, hemoptysis, wheezing or shortness of breath. GASTROINTESTINAL: He complains of diarrhea. GENITOURINARY: No history of frequency, urgency, hesitancy or nocturia. NEUROLOGIC: Denies history of numbness, tingling, tremor or weakness. PSYCHIATRIC: No history of panic, anxiety or depression. ENDOCRINE: No history of heat or cold intolerance, polyuria or polydipsia. EXTREMITIES: Denies muscle weakness, joint pain, pain on walking or stiffness. PHYSICAL EXAMINATION: VITALS: Within normal limits and are stable. GENERAL: No apparent distress. Alert and oriented. HEENT: Normal cephalic atraumatic, external auditory canals are patent EYES: Extraocular muscles are intact, pupils are equally round and reactive to light and accommodation MUSKULOSKELETAL: Well developed, well nourished, good range of motion ENDOCRINE: No thyromegaly was palpated LYMPHATICS: No cervical chain or axillary nodes were noted HEMATOPOIETIC: No bruising NECK: Supple, no JVD, no thyromegaly was noted. LUNGS: Clear to auscultation in all lung sauceda without rhonchi or wheezing. HEART: RRR, S1, S2 present. Peripheral pulses intact, no obvious murmurs were noted. ABDOMEN: Soft, nontender. Positive bowel sounds no organomegaly, normal bowel sounds. EXTREMITIES: Without any cyanosis, clubbing, or edema. Pedal pulses intact, Homans sign is negative. NEUROLOGIC: Normal speech, normal tone. A and O x3, moves all extremities, no obvious focal deficits. PSYCHIATRIC: Normal affect, normal mood. Stable. SKIN: No ulcerations or rashes, good skin turgor, no jaundice. VASCULAR: Good capillary refill, neurovascular bundle appears to be intact. LABORATORY DATA: Hemoglobin is 15.8. Troponin is 0. ASSESSMENT AND PLAN: Chest pain and diarrhea. The patient will be admitted. We will consult Cardiology, serial enzymes, serial EKGs, cardiac monitoring, home meds. Deep venous thrombosis prophylaxis. Full code. P.r.n. Imodium. GORDY LINDSEY DO DR: VIPUL/jeannie JOB#: [id number] / [id number]
[2019-12-24 17:30] VITALS: BP 136/97
[2019-12-24 19:10] VITALS: BP 136/79
[2019-12-24 23:40] VITALS: BP 139/85
[2019-12-25 03:30] VITALS: BP 140/83
[2019-12-25] MEDS ORDERED: MORPHINE SULFATE 2 MG/ML VIAL. IV PRN (04:00)
[2019-12-25 05:02] LABS: HEMATOCRIT 45.9 % (39.0-53.0); HEMOGLOBIN 15.4 g/dL (13.0-17.5); RED BLOOD COUNT 5.6 x10^6/uL (4.30-5.70); RED CELL DISTRIBUTION WIDTH 14.8 % (11.5-14.5); WHITE BLOOD COUNT 3.9 x10^3/uL (4.0-11.0)
[2019-12-25 05:39] LABS: CHOLESTEROL 193 mg/dL (0-200); HDLC 25 mg/dL (40-60); TRIGLYCERIDES 938 mg/dL (0-150); VLDLC 188 mg/dL (0-40)
[2019-12-25 05:43] LABS: CHOLESTEROL/HDL RATIO 7.7
[2019-12-25 07:00] VITALS: BP 153/104
[2019-12-25 11:00] VITALS: BP 148/94
--- NOTE | 2019-12-25 11:09 | PDOC ---
PROGRESS NOTES History of Present Illness History of Present Illness DISCHARGE DX Chest pain diarrhea. MORBID OBESITY left ventricular systolic function is normal.Ejection Fraction is 55-60%.normal LV segmental wall motion. admitted. PLAN consult Cardiology, Will start fenofibrate, statin therapy Outpatient MPI arranged Follow up with Dr. Brandt as scheduled serial enzymes, NEG serial EKGs, cardiac monitoring, home meds. Deep venous thrombosis prophylaxis. Full code. P.r.n. Imodium. Vitals Vitals Vital Signs Date Time Temp Pulse Resp B/P (MAP) Pulse Ox O2 Delivery O2 Flow Rate FiO2 12/25/19 07:00 96.3 73 18 153/104 (120) 98 Room Air 96.3 Physical Exam General: Alert, Oriented X3, Cooperative, No acute distress Heart: Regular rate, Normal S1, Normal S2 Lungs: Clear Abdomen: Soft, No tenderness Extremities: No cyanosis, No edema, Normal pulses Skin: No significant lesion Labs LABS APPROVED REPORT EXAM: Two-dimensional and M-mode echocardiogram with Doppler and color Doppler. Other Information Quality : Average HR: 70bpm Rhythm : NSR INDICATION Chest Pain 2D DIMENSIONS Left Atrium(2D) 3.4 (1.6-4.0cm) IVSd 1.3 (0.7-1.1cm) Aortic Root(2D) 3.3 (2.0-3.7cm) LVDd 4.4 (3.9-5.9cm) PWd 1.2 (0.7-1.1cm) LVDs 3.5 (2.5-4.0cm) FS (%) 20.3 % SV 35.7 ml LVEF(%) 41.8 (>50%) Aortic Valve AoV Peak Leighton. 119.2cm/s AO Peak GR. 5.7mmHg LVOT Peak Leighton. 84.9cm/s Mitral Valve MV E Velocity 61.5cm/s MV DECEL TIME 260ms MV A Velocity 48.1cm/s E/A Ratio 1.3 MV A Duration 131ms Pulmonary Valve PV Peak Velocity 68.2cm/s Tricuspid Valve TR P. Velocity 239cm/s TR Peak Gr. 23mmHg Pulmonary Vein S1 Velocity 31.2cm/s D2 Velocity 47.6cm/s PVa duration 131msec LEFT VENTRICLE The left ventricle is normal size. There is mild concentric left ventricular hypertrophy. The left ventricular systolic function is normal. The Ejection Fraction is 55-60%. There is normal LV segmental wall motion. Transmitral Doppler flow pattern is Grade II-pseudonormal filling dynamics. RIGHT VENTRICLE The right ventricle is normal size. There is normal right ventricular wall thickness. The right ventricular systolic function is normal. ATRIA The left atrium size is normal. The right atrium size is normal. The interatrial septum is intact with no evidence for an atrial septal defect or patent foramen ovale as noted on 2-D or Doppler imaging. AORTIC VALVE The aortic valve is normal in structure and function. No aortic regurgitation is present. There is no aortic valvular stenosis. There is no aortic valvular vegetation. MITRAL VALVE The mitral valve is normal in structure and function. There is no evidence of mitral valve prolapse. There is no mitral valve stenosis. There is no mitral valve regurgitation noted. TRICUSPID VALVE The tricuspid valve is normal in structure and function. Doppler and Color Flow revealed trace to mild tricuspid regurgitation with PAP of 26 mmHg. There is no tricuspid valve prolapse or vegetation. There is no tricuspid valve stenosis. PULMONIC VALVE The pulmonary valve is normal in structure and function. Doppler and Color Flow revealed trace pulmonic valvular regurgitation. There is no pulmonic valvular stenosis. GREAT VESSELS The aortic root is normal in size. The ascending aorta is normal in size. The pulmonary artery is normal. The IVC is normal in size and collapses >50% with inspiration. PERICARDIAL EFFUSION There is no pleural effusion. There is no evidence of significant pericardial effusion. Critical Notification Critical Value: No <Conclusion> The left ventricular systolic function is normal. The Ejection Fraction is 55-60%. There is normal LV segmental wall motion. Trace to mild tricuspid regurgitation with PAP of 26 mmHg. There is no evidence of significant pericardial effusion. Signed by : Kim Velasquez, Electronically Approved : 12/25/2019 14:10:54 DICTATED and SIGNED BY: KIM VELASQUEZ MD DATE: 12/25/19 1138 Laboratory Tests Test 12/24/19 11:35 12/24/19 12:10 12/24/19 15:59 12/24/19 19:30 Influenza Type A Antigen Negative (NEGATIVE) Influenza Type B Antigen Negative (NEGATIVE) White Blood Count 4.1 x10^3/uL (4.0-11.0) Red Blood Count 5.72 x10^6/uL (4.30-5.70) Hemoglobin 15.8 g/dL (13.0-17.5) Hematocrit 47.3 % (39.0-53.0) Mean Corpuscular Volume 83 fL (79-100) Mean Corpuscular Hemoglobin 28 pg (25-35) Mean Corpuscular Hemoglobin Concent 33 g/dL (31-37) Red Cell Distribution Width 14.9 % (11.5-14.5) Platelet Count 295 x10^3/uL (140-400) Neutrophils (%) (Auto) 42 % (31-73) Lymphocytes (%) (Auto) 44 % (24-48) Monocytes (%) (Auto) 9 % (0-9) Eosinophils (%) (Auto) 5 % (0-3) Basophils (%) (Auto) 1 % (0-3) Neutrophils # (Auto) 1.7 x10^3/uL (1.8-7.7) Lymphocytes # (Auto) 1.8 x10^3/uL (1.0-4.8) Monocytes # (Auto) 0.4 x10^3/uL (0.0-1.1) Eosinophils # (Auto) 0.2 x10^3/uL (0.0-0.7) Basophils # (Auto) 0.0 x10^3/uL (0.0-0.2) Prothrombin Time 12.7 SEC (11.7-14.0) Prothromb Time International Ratio 1.0 (0.8-1.1) Activated Partial Thromboplast Time 25 SEC (24-38) Sodium Level 138 mmol/L (136-145) Potassium Level 5.0 mmol/L (3.5-5.1) Chloride Level 104 mmol/L (98-107) Carbon Dioxide Level 27 mmol/L (21-32) Anion Gap 7 (6-14) Blood Urea Nitrogen 17 mg/dL (8-26) Creatinine 0.9 mg/dL (0.7-1.3) Estimated GFR (Cockcroft-Gault) 105.6 BUN/Creatinine Ratio 19 (6-20) Glucose Level 114 mg/dL (70-99) Calcium Level 8.3 mg/dL (8.5-10.1) Total Bilirubin 0.3 mg/dL (0.2-1.0) Aspartate Amino Transf (AST/SGOT) 26 U/L (15-37) Alanine Aminotransferase (ALT/SGPT) 40 U/L (16-63) Alkaline Phosphatase 72 U/L (46-116) Troponin I Quantitative < 0.017 ng/mL (0.000-0.055) < 0.017 ng/mL (0.000-0.055) < 0.017 ng/mL (0.000-0.055) Total Protein 6.5 g/dL (6.4-8.2) Albumin 3.4 g/dL (3.4-5.0) Albumin/Globulin Ratio 1.1 (1.0-1.7) Lipase 122 U/L (73-393) Thyroid Stimulating Hormone (TSH) 0.962 uIU/mL (0.358-3.74) Test 12/25/19 04:50 White Blood Count 3.9 x10^3/uL (4.0-11.0) Red Blood Count 5.60 x10^6/uL (4.30-5.70) Hemoglobin 15.4 g/dL (13.0-17.5) Hematocrit 45.9 % (39.0-53.0) Mean Corpuscular Volume 82 fL (79-100) Mean Corpuscular Hemoglobin 28 pg (25-35) Mean Corpuscular Hemoglobin Concent 34 g/dL (31-37) Red Cell Distribution Width 14.8 % (11.5-14.5) Platelet Count 297 x10^3/uL (140-400) Triglycerides Level 938 mg/dL (0-150) Cholesterol Level 193 mg/dL (0-200) LDL Cholesterol, Calculated mg/dL (0-100) VLDL Cholesterol, Calculated 188 mg/dL (0-40) Non-HDL Cholesterol Calculated 168 mg/dL (0-129) HDL Cholesterol 25 mg/dL (40-60) Cholesterol/HDL Ratio 7.7 Assessment and Plan Assessmemt and Plan Problems Medical Problems: (1) Chest pain Status: Acute (2) Diarrhea Status: Acute Comment Review of Relevant I have reviewed the following items eboni (where applicable) has been applied. Labs Laboratory Tests Test 12/24/19 11:35 12/24/19 12:10 12/24/19 15:59 12/24/19 19:30 Influenza Type A Antigen Negative (NEGATIVE) Influenza Type B Antigen Negative (NEGATIVE) White Blood Count 4.1 x10^3/uL (4.0-11.0) Red Blood Count 5.72 x10^6/uL (4.30-5.70) Hemoglobin 15.8 g/dL (13.0-17.5) Hematocrit 47.3 % (39.0-53.0) Mean Corpuscular Volume 83 fL (79-100) Mean Corpuscular Hemoglobin 28 pg (25-35) Mean Corpuscular Hemoglobin Concent 33 g/dL (31-37) Red Cell Distribution Width 14.9 % (11.5-14.5) Platelet Count 295 x10^3/uL (140-400) Neutrophils (%) (Auto) 42 % (31-73) Lymphocytes (%) (Auto) 44 % (24-48) Monocytes (%) (Auto) 9 % (0-9) Eosinophils (%) (Auto) 5 % (0-3) Basophils (%) (Auto) 1 % (0-3) Neutrophils # (Auto) 1.7 x10^3/uL (1.8-7.7) Lymphocytes # (Auto) 1.8 x10^3/uL (1.0-4.8) Monocytes # (Auto) 0.4 x10^3/uL (0.0-1.1) Eosinophils # (Auto) 0.2 x10^3/uL (0.0-0.7) Basophils # (Auto) 0.0 x10^3/uL (0.0-0.2) Prothrombin Time 12.7 SEC (11.7-14.0) Prothromb Time International Ratio 1.0 (0.8-1.1) Activated Partial Thromboplast Time 25 SEC (24-38) Sodium Level 138 mmol/L (136-145) Potassium Level 5.0 mmol/L (3.5-5.1) Chloride Level 104 mmol/L (98-107) Carbon Dioxide Level 27 mmol/L (21-32) Anion Gap 7 (6-14) Blood Urea Nitrogen 17 mg/dL (8-26) Creatinine 0.9 mg/dL (0.7-1.3) Estimated GFR (Cockcroft-Gault) 105.6 BUN/Creatinine Ratio 19 (6-20) Glucose Level 114 mg/dL (70-99) Calcium Level 8.3 mg/dL (8.5-10.1) Total Bilirubin 0.3 mg/dL (0.2-1.0) Aspartate Amino Transf (AST/SGOT) 26 U/L (15-37) Alanine Aminotransferase (ALT/SGPT) 40 U/L (16-63) Alkaline Phosphatase 72 U/L (46-116) Troponin I Quantitative < 0.017 ng/mL (0.000-0.055) < 0.017 ng/mL (0.000-0.055) < 0.017 ng/mL (0.000-0.055) Total Protein 6.5 g/dL (6.4-8.2) Albumin 3.4 g/dL (3.4-5.0) Albumin/Globulin Ratio 1.1 (1.0-1.7) Lipase 122 U/L (73-393) Thyroid Stimulating Hormone (TSH) 0.962 uIU/mL (0.358-3.74) Test 12/25/19 04:50 White Blood Count 3.9 x10^3/uL (4.0-11.0) Red Blood Count 5.60 x10^6/uL (4.30-5.70) Hemoglobin 15.4 g/dL (13.0-17.5) Hematocrit 45.9 % (39.0-53.0) Mean Corpuscular Volume 82 fL (79-100) Mean Corpuscular Hemoglobin 28 pg (25-35) Mean Corpuscular Hemoglobin Concent 34 g/dL (31-37) Red Cell Distribution Width 14.8 % (11.5-14.5) Platelet Count 297 x10^3/uL (140-400) Triglycerides Level 938 mg/dL (0-150) Cholesterol Level 193 mg/dL (0-200) LDL Cholesterol, Calculated mg/dL (0-100) VLDL Cholesterol, Calculated 188 mg/dL (0-40) Non-HDL Cholesterol Calculated 168 mg/dL (0-129) HDL Cholesterol 25 mg/dL (40-60) Cholesterol/HDL Ratio 7.7 Laboratory Tests Test 12/24/19 11:35 12/24/19 12:10 12/24/19 15:59 12/24/19 19:30 Influenza Type A Antigen Negative (NEGATIVE) Influenza Type B Antigen Negative (NEGATIVE) White Blood Count 4.1 x10^3/uL (4.0-11.0) Red Blood Count 5.72 x10^6/uL (4.30-5.70) Hemoglobin 15.8 g/dL (13.0-17.5) Hematocrit 47.3 % (39.0-53.0) Mean Corpuscular Volume 83 fL (79-100) Mean Corpuscular Hemoglobin 28 pg (25-35) Mean Corpuscular Hemoglobin Concent 33 g/dL (31-37) Red Cell Distribution Width 14.9 % (11.5-14.5) Platelet Count 295 x10^3/uL (140-400) Neutrophils (%) (Auto) 42 % (31-73) Lymphocytes (%) (Auto) 44 % (24-48) Monocytes (%) (Auto) 9 % (0-9) Eosinophils (%) (Auto) 5 % (0-3) Basophils (%) (Auto) 1 % (0-3) Neutrophils # (Auto) 1.7 x10^3/uL (1.8-7.7) Lymphocytes # (Auto) 1.8 x10^3/uL (1.0-4.8) Monocytes # (Auto) 0.4 x10^3/uL (0.0-1.1) Eosinophils # (Auto) 0.2 x10^3/uL (0.0-0.7) Basophils # (Auto) 0.0 x10^3/uL (0.0-0.2) Prothrombin Time 12.7 SEC (11.7-14.0) Prothromb Time International Ratio 1.0 (0.8-1.1) Activated Partial Thromboplast Time 25 SEC (24-38) Sodium Level 138 mmol/L (136-145) Potassium Level 5.0 mmol/L (3.5-5.1) Chloride Level 104 mmol/L (98-107) Carbon Dioxide Level 27 mmol/L (21-32) Anion Gap 7 (6-14) Blood Urea Nitrogen 17 mg/dL (8-26) Creatinine 0.9 mg/dL (0.7-1.3) Estimated GFR (Cockcroft-Gault) 105.6 BUN/Creatinine Ratio 19 (6-20) Glucose Level 114 mg/dL (70-99) Calcium Level 8.3 mg/dL (8.5-10.1) Total Bilirubin 0.3 mg/dL (0.2-1.0) Aspartate Amino Transf (AST/SGOT) 26 U/L (15-37) Alanine Aminotransferase (ALT/SGPT) 40 U/L (16-63) Alkaline Phosphatase 72 U/L (46-116) Troponin I Quantitative < 0.017 ng/mL (0.000-0.055) < 0.017 ng/mL (0.000-0.055) < 0.017 ng/mL (0.000-0.055) Total Protein 6.5 g/dL (6.4-8.2) Albumin 3.4 g/dL (3.4-5.0) Albumin/Globulin Ratio 1.1 (1.0-1.7) Lipase 122 U/L (73-393) Thyroid Stimulating Hormone (TSH) 0.962 uIU/mL (0.358-3.74) Test 12/25/19 04:50 White Blood Count 3.9 x10^3/uL (4.0-11.0) Red Blood Count 5.60 x10^6/uL (4.30-5.70) Hemoglobin 15.4 g/dL (13.0-17.5) Hematocrit 45.9 % (39.0-53.0) Mean Corpuscular Volume 82 fL (79-100) Mean Corpuscular Hemoglobin 28 pg (25-35) Mean Corpuscular Hemoglobin Concent 34 g/dL (31-37) Red Cell Distribution Width 14.8 % (11.5-14.5) Platelet Count 297 x10^3/uL (140-400) Triglycerides Level 938 mg/dL (0-150) Cholesterol Level 193 mg/dL (0-200) LDL Cholesterol, Calculated mg/dL (0-100) VLDL Cholesterol, Calculated 188 mg/dL (0-40) Non-HDL Cholesterol Calculated 168 mg/dL (0-129) HDL Cholesterol 25 mg/dL (40-60) Cholesterol/HDL Ratio 7.7 Medications Current Medications Sodium Chloride 1,000 ml @ 1,000 mls/hr 1X ONCE IV Last administered on 12/24/19at 11:34; Start 12/24/19 at 11:15; Stop 12/24/19 at 12:14; Status DC Ondansetron HCl (Zofran) 4 mg 1X ONCE IV Last administered on 12/24/19at 11:34; Start 12/24/19 at 11:15; Stop 12/24/19 at 11:16; Status DC Aspirin (Children'S Aspirin) 324 mg 1X ONCE PO Last administered on 12/24/19at 11:40; Start 12/24/19 at 11:45; Stop 12/24/19 at 11:46; Status DC Heparin Sodium (Porcine) (Heparin Sodium) 4,000 unit 1X ONCE IV Last administered on 12/24/19at 14:02; Start 12/24/19 at 13:15; Stop 12/24/19 at 13:16; Status DC Heparin Sodium/ Dextrose 250 ml @ 0 mls/hr CONT PRN IV PER PROTOCOL Last administered on 12/24/19at 14:07; Start 12/24/19 at 13:15; Stop 12/24/19 at 19:40; Status DC Heparin Sodium (Porcine) (Heparin Sodium) 2,300 unit PRN Q6HRS PRN IV FOR UFH LEVEL LESS THAN 0.2; Start 12/24/19 at 13:15; Stop 12/24/19 at 19:41; Status DC Info (Anti-Coagulation Monitoring By Pharmacy) 1 each PRN DAILY PRN MC SEE COMMENTS; Start 12/24/19 at 13:30; Status Cancel Morphine Sulfate (Morphine Sulfate) 2 mg PRN Q4HRS PRN IV PAIN Last administered on 12/25/19at 04:20; Start 12/25/19 at 04:00 Active Scripts Active Vitals/I & O Vital Sign - Last 24 Hours 12/24/19 12/24/19 12/24/19 12/24/19 11:19 11:46 12:29 12:46 Pulse 62 58 60 58 Resp 18 20 21 22 B/P (MAP) 133/82 (99) 130/78 (95) 134/76 (95) 138/84 (102) Pulse Ox 100 95 95 97 12/24/19 12/24/19 12/24/19 12/24/19 13:24 14:24 15:24 15:54 Pulse 76 82 88 86 Resp 20 18 20 20 B/P (MAP) 117/79 (92) 138/75 (96) 154/88 (110) 145/98 (114) Pulse Ox 97 98 98 100 12/24/19 12/24/19 12/24/19 12/24/19 16:47 16:53 17:30 18:17 Temp 98.0 98.0 Pulse 88 84 80 Resp 20 16 18 B/P (MAP) 144/88 (106) 152/92 (112) 136/97 (110) Pulse Ox 99 98 O2 Delivery Room Air Room Air Room Air 12/24/19 12/24/19 12/24/19 12/25/19 19:10 20:00 23:40 03:30 Temp 98.0 98.0 97.8 98.0 98.0 97.8 Pulse 76 86 74 Resp 18 18 18 B/P (MAP) 136/79 (98) 139/85 (103) 140/83 (102) Pulse Ox 96 96 96 O2 Delivery Room Air Room Air Room Air Room Air 12/25/19 12/25/19 12/25/19 04:20 04:50 07:00 Temp 96.3 96.3 Pulse 73 Resp 18 B/P (MAP) 153/104 (120) Pulse Ox 96 98 O2 Delivery Room Air Room Air Room Air Intake and Output 12/24/19 12/24/19 12/25/19 15:00 23:00 07:00 Intake Total 1000 ml 500 ml Output Total 650 ml Balance 1000 ml -150 ml SAMARA ALEGRIA MD Dec 25, 2019 11:09
--- NOTE | 2019-12-25 13:29 | PDOC ---
CARDIO Progress Notes Date and Time Date of Service 12/25/19 Time of Evaluation 1310 Subjective Subjective: No Chest Pain, No shortness of breath, No Palpitations, Other (c/o muscle aches in his bilateral shoulders, arms) Vitals Vitals Vital Signs Date Time Temp Pulse Resp B/P (MAP) Pulse Ox O2 Delivery O2 Flow Rate FiO2 12/25/19 11:00 97.4 68 20 148/94 (112) 98 Room Air 97.4 Weight Weight [ ] Input and Output Intake and Output Intake and Output 12/25/19 07:00 Intake Total 1500 ml Output Total 650 ml Balance 850 ml Intake Oral 500 ml IV Total 1000 ml Output Urine Total 650 ml # Voids 1 Laboratory Labs Laboratory Tests Test 12/24/19 15:59 12/24/19 19:30 12/25/19 04:50 Troponin I Quantitative < 0.017 ng/mL (0.000-0.055) < 0.017 ng/mL (0.000-0.055) Thyroid Stimulating Hormone (TSH) 0.962 uIU/mL (0.358-3.74) White Blood Count 3.9 x10^3/uL (4.0-11.0) Red Blood Count 5.60 x10^6/uL (4.30-5.70) Hemoglobin 15.4 g/dL (13.0-17.5) Hematocrit 45.9 % (39.0-53.0) Mean Corpuscular Volume 82 fL (79-100) Mean Corpuscular Hemoglobin 28 pg (25-35) Mean Corpuscular Hemoglobin Concent 34 g/dL (31-37) Red Cell Distribution Width 14.8 % (11.5-14.5) Platelet Count 297 x10^3/uL (140-400) Triglycerides Level 938 mg/dL (0-150) Cholesterol Level 193 mg/dL (0-200) LDL Cholesterol, Calculated mg/dL (0-100) VLDL Cholesterol, Calculated 188 mg/dL (0-40) Non-HDL Cholesterol Calculated 168 mg/dL (0-129) HDL Cholesterol 25 mg/dL (40-60) Cholesterol/HDL Ratio 7.7 Physical Exam HEENT: Neck Supple W Full Motion Chest: Symmetric LUNGS: Clear to Auscultation Heart: S1S2, RRR Abdomen: Soft N/T Extremities: No Edema Neurology: alert, oriented, follow commands Assessment Assessment 1. Chest pain, atypical. AMI ruled out. Echo with preserved LV systolic function 2. Hypertension; elevated 3. Dyslipidemia; trig 938 Recommendations ASA therapy Add lisinopril for BP control Will start fenofibrate, statin therapy Outpatient MPI arranged Follow up with Dr. Brandt as scheduled ALYSSA DAMIAN APRN Dec 25, 2019 13:29
--- NOTE | 2019-12-25 13:48 | NUR ---
SS following for discharge planning. SS reviewed pt chart. Pt is from home and is currently on room air. SS will continue to follow for discharge planning.
[2019-12-25] MEDS ORDERED: FENOFIBRATE 54 MG TABLET. PO SCH (14:00)
--- NOTE | 2019-12-25 14:11 | CARD ---
MR#: [id number] Date of Study: 12/25/2019 Ordering Physician: ALYSSA DAMIAN, Referring Physician: ALYSSA DAMIAN, Tech: Tre Rivas [facility] APPROVED REPORT EXAM: Two-dimensional and M-mode echocardiogram with Doppler and color Doppler. Other Information Quality : AverageHR: 70bpm Rhythm : NSR INDICATION Chest Pain 2D DIMENSIONS Left Atrium(2D)3.4 (1.6-4.0cm)IVSd1.3 (0.7-1.1cm) Aortic Root(2D)3.3 (2.0-3.7cm)LVDd4.4 (3.9-5.9cm) PWd1.2 (0.7-1.1cm)LVDs3.5 (2.5-4.0cm) FS (%) 20.3 %SV35.7 ml LVEF(%)41.8 (>50%) Aortic Valve AoV Peak Leighton.119.2cm/Jackie Peak GR.5.7mmHg LVOT Peak Leighton.84.9cm/s Mitral Valve MV E Noekzcvi65.5cm/sMV DECEL [id number] MV A Iienipgq94.1cm/sE/A Ratio1.3 MV A [id number] Pulmonary Valve PV Peak Vdpstrgo95.2cm/s Tricuspid Valve TR P. [id number]/sTR Peak Gr.23mmHg Pulmonary Vein S1 Ywjrsivs29.2cm/sD2 Gccozkze43.6cm/s PVa [id number] LEFT VENTRICLE The left ventricle is normal size. There is mild concentric left ventricular hypertrophy. The left ve ntricular systolic function is normal. The Ejection Fraction is 55-60%. There is normal LV segmental wall motion. Transmitral Doppler flow pattern is Grade II-pseudonormal filling dynamics. RIGHT VENTRICLE The right ventricle is normal size. There is normal right ventricular wall thickness. The right ventr icular systolic function is normal. ATRIA The left atrium size is normal. The right atrium size is normal. The interatrial septum is intact wit h no evidence for an atrial septal defect or patent foramen ovale as noted on 2-D or Doppler imaging. AORTIC VALVE The aortic valve is normal in structure and function. No aortic regurgitation is present. There is no aortic valvular stenosis. There is no aortic valvular vegetation. MITRAL VALVE The mitral valve is normal in structure and function. There is no evidence of mitral valve prolapse. There is no mitral valve stenosis. There is no mitral valve regurgitation noted. TRICUSPID VALVE The tricuspid valve is normal in structure and function. Doppler and Color Flow revealed trace to mil d tricuspid regurgitation with PAP of 26 mmHg. There is no tricuspid valve prolapse or vegetation. Th ere is no tricuspid valve stenosis. PULMONIC VALVE The pulmonary valve is normal in structure and function. Doppler and Color Flow revealed trace pulmon ic valvular regurgitation. There is no pulmonic valvular stenosis. GREAT VESSELS The aortic root is normal in size. The ascending aorta is normal in size. The pulmonary artery is nor mal. The IVC is normal in size and collapses >50% with inspiration. PERICARDIAL EFFUSION There is no pleural effusion. There is no evidence of significant pericardial effusion. Critical Notification Critical Value: No <Conclusion> The left ventricular systolic function is normal. The Ejection Fraction is 55-60%. There is normal LV segmental wall motion. Trace to mild tricuspid regurgitation with PAP of 26 mmHg. There is no evidence of significant pericardial effusion. Signed by : Avni Velasquez, Electronically Approved : 12/25/2019 14:10:54
[2019-12-25 15:00] VITALS: BP 155/77
--- NOTE | 2019-12-25 15:18 | PDOC3 ---
Discharge Summary Date of Admission: Dec 24, 2019 Date of Discharge: Dec 25, 2019 Follow-Up: 3-5 days Admitting Diagnosis comment: DISCHARGE DX Chest pain diarrhea. MORBID OBESITY left ventricular systolic function is normal.Ejection Fraction is 55-60%.normal LV segmental wall motion. admitted. PLAN consult Cardiology, Will start fenofibrate, statin therapy Outpatient [facility] arranged Follow up with Dr. Brandt as scheduled serial enzymes, NEG serial EKGs, cardiac monitoring, home meds. Deep venous thrombosis prophylaxis. Full code. P.r.n. Imodium. D/C PLANNING 34 MIN Vitals Vitals Vital Signs Date Time Temp Pulse Resp B/P (MAP) Pulse Ox O2 Delivery O2 Flow Rate FiO2 12/25/19 07:00 96.3 73 18 153/104 (120) 98 Room Air 96.3 Physical Exam General: Alert, Oriented X3, Cooperative, No acute distress Heart: Regular rate, Normal S1, Normal S2 Lungs: Clear Abdomen: Soft, No tenderness Extremities: No cyanosis, No edema, Normal pulses Skin: No significant lesion Labs LABS APPROVED REPORT EXAM: Two-dimensional and M-mode echocardiogram with Doppler and color Doppler. Other Information Quality : Average HR: 70bpm Rhythm : NSR INDICATION Chest Pain 2D DIMENSIONS Left Atrium(2D) 3.4 (1.6-4.0cm) IVSd 1.3 (0.7-1.1cm) Aortic Root(2D) 3.3 (2.0-3.7cm) LVDd 4.4 (3.9-5.9cm) PWd 1.2 (0.7-1.1cm) LVDs 3.5 (2.5-4.0cm) FS (%) 20.3 % SV 35.7 ml LVEF(%) 41.8 (>50%) Aortic Valve AoV Peak Leighton. 119.2cm/s AO Peak GR. 5.7mmHg LVOT Peak Leighton. 84.9cm/s Mitral Valve MV E Velocity 61.5cm/s MV DECEL TIME 260ms MV A Velocity 48.1cm/s E/A Ratio 1.3 MV A Duration 131ms Pulmonary Valve PV Peak Velocity 68.2cm/s Tricuspid Valve TR P. Velocity 239cm/s TR Peak Gr. 23mmHg Pulmonary Vein S1 Velocity 31.2cm/s D2 Velocity 47.6cm/s PVa duration 131msec LEFT VENTRICLE The left ventricle is normal size. There is mild concentric left ventricular hypertrophy. The left ventricular systolic function is normal. The Ejection Fraction is 55-60%. There is normal LV segmental wall motion. Transmitral Doppler flow pattern is Grade II-pseudonormal filling dynamics. RIGHT VENTRICLE The right ventricle is normal size. There is normal right ventricular wall thickness. The right ventricular systolic function is normal. ATRIA The left atrium size is normal. The right atrium size is normal. The interatrial septum is intact with no evidence for an atrial septal defect or patent foramen ovale as noted on 2-D or Doppler imaging. AORTIC VALVE The aortic valve is normal in structure and function. No aortic regurgitation is present. There is no aortic valvular stenosis. There is no aortic valvular vegetation. MITRAL VALVE The mitral valve is normal in structure and function. There is no evidence of mitral valve prolapse. There is no mitral valve stenosis. There is no mitral valve regurgitation noted. TRICUSPID VALVE The tricuspid valve is normal in structure and function. Doppler and Color Flow revealed trace to mild tricuspid regurgitation with PAP of 26 mmHg. There is no tricuspid valve prolapse or vegetation. There is no tricuspid valve stenosis. PULMONIC VALVE The pulmonary valve is normal in structure and function. Doppler and Color Flow revealed trace pulmonic valvular regurgitation. There is no pulmonic valvular stenosis. GREAT VESSELS The aortic root is normal in size. The ascending aorta is normal in size. The pulmonary artery is normal. The IVC is normal in size and collapses >50% with inspiration. PERICARDIAL EFFUSION There is no pleural effusion. There is no evidence of significant pericardial effusion. Critical Notification Critical Value: No <Conclusion> The left ventricular systolic function is normal. The Ejection Fraction is 55-60%. There is normal LV segmental wall motion. Trace to mild tricuspid regurgitation with PAP of 26 mmHg. There is no evidence of significant pericardial effusion. Signed by : Avni Velasquez, Electronically Approved : 12/25/2019 14:10:54 FINAL DIAGNOSIS Problems Medical Problems: (1) Chest pain Status: Acute (2) Diarrhea Status: Acute Brief Hospital Course Mr. Munoz is a 54 old [sex] who presented with [ANGINA ] CONDITION AT DISCHARGE: Improved Discharge Medications Current Medications Sodium Chloride 1,000 ml @ 1,000 mls/hr 1X ONCE IV Last administered on 12/24/19at 11:34; Start 12/24/19 at 11:15; Stop 12/24/19 at 12:14; Status DC Ondansetron HCl (Zofran) 4 mg 1X ONCE IV Last administered on 12/24/19at 11:34; Start 12/24/19 at 11:15; Stop 12/24/19 at 11:16; Status DC Aspirin (Children'S Aspirin) 324 mg 1X ONCE PO Last administered on 12/24/19at 11:40; Start 12/24/19 at 11:45; Stop 12/24/19 at 11:46; Status DC Heparin Sodium (Porcine) (Heparin Sodium) 4,000 unit 1X ONCE IV Last administered on 12/24/19at 14:02; Start 12/24/19 at 13:15; Stop 12/24/19 at 13:16; Status DC Heparin Sodium/ Dextrose 250 ml @ 0 mls/hr CONT PRN IV PER PROTOCOL Last administered on 12/24/19at 14:07; Start 12/24/19 at 13:15; Stop 12/24/19 at 19:40; Status DC Heparin Sodium (Porcine) (Heparin Sodium) 2,300 unit PRN Q6HRS PRN IV FOR UFH LEVEL LESS THAN 0.2; Start 12/24/19 at 13:15; Stop 12/24/19 at 19:41; Status DC Info (Anti-Coagulation Monitoring By Pharmacy) 1 each PRN DAILY PRN MC SEE COMMENTS; Start 12/24/19 at 13:30; Status Cancel Morphine Sulfate (Morphine Sulfate) 2 mg PRN Q4HRS PRN IV PAIN Last administered on 12/25/19at 04:20; Start 12/25/19 at 04:00 Fenofibrate (Lofibra) 54 mg DAILY PO ; Start 12/25/19 at 14:00 Atorvastatin Calcium (Lipitor) 40 mg QHS PO ; Start 12/25/19 at 21:00 Active Scripts Active Vital Signs Vital Signs Date Time Temp Pulse Resp B/P (MAP) Pulse Ox O2 Delivery O2 Flow Rate FiO2 12/25/19 11:00 97.4 68 20 148/94 (112) 98 Room Air 97.4 Labs Laboratory Tests Test 12/24/19 11:35 12/24/19 12:10 12/24/19 15:59 12/24/19 19:30 Influenza Type A Antigen Negative (NEGATIVE) Influenza Type B Antigen Negative (NEGATIVE) White Blood Count 4.1 x10^3/uL (4.0-11.0) Red Blood Count 5.72 x10^6/uL (4.30-5.70) Hemoglobin 15.8 g/dL (13.0-17.5) Hematocrit 47.3 % (39.0-53.0) Mean Corpuscular Volume 83 fL (79-100) Mean Corpuscular Hemoglobin 28 pg (25-35) Mean Corpuscular Hemoglobin Concent 33 g/dL (31-37) Red Cell Distribution Width 14.9 % (11.5-14.5) Platelet Count 295 x10^3/uL (140-400) Neutrophils (%) (Auto) 42 % (31-73) Lymphocytes (%) (Auto) 44 % (24-48) Monocytes (%) (Auto) 9 % (0-9) Eosinophils (%) (Auto) 5 % (0-3) Basophils (%) (Auto) 1 % (0-3) Neutrophils # (Auto) 1.7 x10^3/uL (1.8-7.7) Lymphocytes # (Auto) 1.8 x10^3/uL (1.0-4.8) Monocytes # (Auto) 0.4 x10^3/uL (0.0-1.1) Eosinophils # (Auto) 0.2 x10^3/uL (0.0-0.7) Basophils # (Auto) 0.0 x10^3/uL (0.0-0.2) Prothrombin Time 12.7 SEC (11.7-14.0) Prothromb Time International Ratio 1.0 (0.8-1.1) Activated Partial Thromboplast Time 25 SEC (24-38) Sodium Level 138 mmol/L (136-145) Potassium Level 5.0 mmol/L (3.5-5.1) Chloride Level 104 mmol/L (98-107) Carbon Dioxide Level 27 mmol/L (21-32) Anion Gap 7 (6-14) Blood Urea Nitrogen 17 mg/dL (8-26) Creatinine 0.9 mg/dL (0.7-1.3) Estimated GFR (Cockcroft-Gault) 105.6 BUN/Creatinine Ratio 19 (6-20) Glucose Level 114 mg/dL (70-99) Calcium Level 8.3 mg/dL (8.5-10.1) Total Bilirubin 0.3 mg/dL (0.2-1.0) Aspartate Amino Transf (AST/SGOT) 26 U/L (15-37) Alanine Aminotransferase (ALT/SGPT) 40 U/L (16-63) Alkaline Phosphatase 72 U/L (46-116) Troponin I Quantitative < 0.017 ng/mL (0.000-0.055) < 0.017 ng/mL (0.000-0.055) < 0.017 ng/mL (0.000-0.055) Total Protein 6.5 g/dL (6.4-8.2) Albumin 3.4 g/dL (3.4-5.0) Albumin/Globulin Ratio 1.1 (1.0-1.7) Lipase 122 U/L (73-393) Thyroid Stimulating Hormone (TSH) 0.962 uIU/mL (0.358-3.74) Test 12/25/19 04:50 White Blood Count 3.9 x10^3/uL (4.0-11.0) Red Blood Count 5.60 x10^6/uL (4.30-5.70) Hemoglobin 15.4 g/dL (13.0-17.5) Hematocrit 45.9 % (39.0-53.0) Mean Corpuscular Volume 82 fL (79-100) Mean Corpuscular Hemoglobin 28 pg (25-35) Mean Corpuscular Hemoglobin Concent 34 g/dL (31-37) Red Cell Distribution Width 14.8 % (11.5-14.5) Platelet Count 297 x10^3/uL (140-400) Triglycerides Level 938 mg/dL (0-150) Cholesterol Level 193 mg/dL (0-200) LDL Cholesterol, Calculated mg/dL (0-100) VLDL Cholesterol, Calculated 188 mg/dL (0-40) Non-HDL Cholesterol Calculated 168 mg/dL (0-129) HDL Cholesterol 25 mg/dL (40-60) Cholesterol/HDL Ratio 7.7 Laboratory Tests Test 12/24/19 15:59 12/24/19 19:30 12/25/19 04:50 Troponin I Quantitative < 0.017 ng/mL (0.000-0.055) < 0.017 ng/mL (0.000-0.055) Thyroid Stimulating Hormone (TSH) 0.962 uIU/mL (0.358-3.74) White Blood Count 3.9 x10^3/uL (4.0-11.0) Red Blood Count 5.60 x10^6/uL (4.30-5.70) Hemoglobin 15.4 g/dL (13.0-17.5) Hematocrit 45.9 % (39.0-53.0) Mean Corpuscular Volume 82 fL (79-100) Mean Corpuscular Hemoglobin 28 pg (25-35) Mean Corpuscular Hemoglobin Concent 34 g/dL (31-37) Red Cell Distribution Width 14.8 % (11.5-14.5) Platelet Count 297 x10^3/uL (140-400) Triglycerides Level 938 mg/dL (0-150) Cholesterol Level 193 mg/dL (0-200) LDL Cholesterol, Calculated mg/dL (0-100) VLDL Cholesterol, Calculated 188 mg/dL (0-40) Non-HDL Cholesterol Calculated 168 mg/dL (0-129) HDL Cholesterol 25 mg/dL (40-60) Cholesterol/HDL Ratio 7.7 Allergies Allergies Coded Allergies Type Severity Reaction Last Updated Verified No Known Drug Allergies 10/19/17 No Disposition/Orders: D/C to Home SAMARA ALEGRIA MD Dec 25, 2019 15:18
[2019-12-25] MEDS ORDERED: FENO54TA PO (15:19)
[2019-12-25] MEDS ORDERED: ATOR40TA59 PO (15:19)
--- NOTE | 2019-12-25 15:20 | DISCH ---
DISCHARGE INSTRUCTIONS Condition on Discharge Condition on Discharge: Stable Activity After Discharge Activity Instructions for Disc: Activity as tolerated Driving Instructions after Dis: Do not drive today Diet after Discharge Diet after Discharge: Cardiac Checks after Discharge Checks after discharge: Check blood press - daily Contacting the [facility]Shell after DC Call your doctor for: If your condition worsens Treatment/Equipment after DC Adaptive Equipment Issued: None SAMARA ALEGRIA MD Dec 25, 2019 15:20
[2019-12-25] MEDS ORDERED: LISINOPRIL 10 MG TABLET PO SCH (15:45)
[2019-12-25] MEDS ORDERED: ASPIRIN ENTERIC COATED 81 MG TABLET.DR. PO SCH (16:00)
[2019-12-25] MEDS ORDERED: LISI10TA2 PO (16:24)
[2019-12-25] MEDS ORDERED: ASPI-630 PO (16:25)
--- NOTE | 2019-12-25 17:04 | NUR ---
Discharge Note: MEIR CHOU Discharge instructions and discharge home medications reviewed with Patient and a copy given. All questions have been answered and understanding verbalized. The following instructions and handouts were given: written discharge papers, called prescriptions to pharmacy, education onlowering cholesterol, follow up appointment including instructions for outpatient stress test Discontinued lines and drains: peripheral IV discontinued, dressing clean, dry and intact. Patient discharged to home with significant other via ambulation
[2019-12-25] MEDS ORDERED: ATORVASTATIN CALCIUM 40 MG TABLET. PO SCH (21:00)
== END 2019-12-25 17:05 | disposition home or self-care (01) | DRG 311 ==
LOC: ER 10:05 → 1 WEST ICU 13:00 → ED HOLD 13:00 → UNDOADMIN 13:00 → 2 NORTH 17:47
PROVIDERS: ADMIT Internal Medicine; ATTEND Internal Medicine
DX: I20.9 Angina pectoris, unspecified (principal); I10 Essential (primary) hypertension; F17.210 Nicotine dependence, cigarettes, uncomplicated; E78.5 Hyperlipidemia, unspecified; M19.90 Unspecified osteoarthritis, unspecified site; E66.01 Morbid (severe) obesity due to excess calories; Z68.32 Body mass index [BMI] 32.0-32.9, adult; Z83.3 Family history of diabetes mellitus; Z82.49 Family history of ischemic heart disease and other diseases of the circulatory system
CPT/HCPCS: 36415; 71045; 80053; 80061; 83690; 84443; 84484; 85025; 85027; 85610; 85730; 87804; 93005; 93306; J1644; J2270; J2405; J7030; G0378

== ENCOUNTER → 2020-01-16 | Outpatient (CLI) | payer BC ==
[2019-12-25 15:00] VITALS: BP 155/77
[~2020-01-16] MED LIST changes: +ASPI-630 PO; +ATOR40TA59 PO; +FENO54TA PO; +LISI10TA2 PO; +REGADENOSON 0.4 MG/5 ML DISP.SYRIN. IV ONE
--- NOTE | 2020-01-16 12:49 | RAD ---
MR#: [id number] Date of Study: 01/16/2020 Ordering Physician: KYRA BRANDT, Referring Physician: ROSALIA TIPTON Tech: RT Natalya (R) (N) APPROVED REPORT Test Type: Pharmacological Stress Nurse/Tech: Juana Long RN Test Indications: Chest Pain Cardiac History: High cholesterol, Hypertension, Family history, Smoker Medications: See Electronic Medical Record Medical History: See Electronic Medical Record Resting ECG: SR Resting Heart Rate: 75 bpm Resting Blood Pressure: 122/72mmHg Pretest Chest Pain: No chest pain Nurse/Tech Notes S1 S2, Lungs CTA Consent: The procedure was explained to the patient in lay terms. Informed consent was witnessed. Ramiro eout was entered into [employer]. History and Stress Test performed by ELYSIA Valencia Pharm. Details Pharmacologic stress testing was performed using 0.4mg per 5ml of regadenoson given intravenously ove r 7-10 seconds. Stress Symptoms Dyspnea, cramping in stomach and legs. POST EXERCISE Reason for Termination: Infusion complete Max HR: 97 bpm Max Blood Pressure: 123/80mmHg Blood Pressure response to exercise: Normal blood pressure response during stress. Heart Rate response to exercise: WNL Chest Pain: No. Arrhythmia: No. ST Change: No. INTERPRETATION Stress EKG Conclusion: No evidence of stress induced EKG changes. Imaging Protocol IMAGE PROTOCOL: Rest Tc-99m/stress Tc-99m 1 day Rest: Stress: Viability: Radiopharm.Tc99m [id number] Sestamibi [id number] 33mCi Duration 15min. 15min. Img Date 01/16/2020 01/16/2020 Inj-Img [id number]. 60min. Rest Admin Site:IV - Right AntecubitalAdministrator:ELYSIA Valencia Stress Admin Site: IV - Right AntecubitalAdministrator: ELYSIA Valencia STRESS DATA End Diast. Vol.101.0mlAv. Heart Rate78.0bpm End Syst. Vol.28.0mlCO Index BSA5.7L/min Myocardial Zklf091.0gEject. Ckeicnth16.0% Stress Rates Pk. Fill Rate2.78EDV/secLVtime Pk. Fill 81.51msec Pk. Empty Rate4.58ESV/secLVtime Pk. Uunrc214.40msec 11/02 Pk. Fill1.95EDV/sec Stress Scores Regional WT2.00Summed WT7.00 Regional WM0.00Summed WM0.00 The rest and stress images show normal perfusion, normal contraction and thickening. LV Perf. Quant 17 Seg. SSS0.00 17 Seg. SRS0.00 17 Seg. SDS0.00 Stress Defect Extent (% LAD)0.00Rest Defect Extent (% LAD)0.00Rev. Defect Extent (% LAD)0.00 Stress Defect Extent (% LCX) 0.00Rest Defect Extent (% LCX)2.50Rev. Defect Extent (% LCX)0.00 Stress Defect Extent (% RCA)0.00Rest Defect Extent (% RCA)0.00Rev. Defect Extent (% RCA)0.00 Stress Defect Extent (% MITALI)0.00Rest Defect Extent (% MITALI)0.40Rev. Defect Extent (% MITALI)0.00 Other Information Quality:Good Risk Assessment: Low Risk Conclusion 1. No evidence of EKG changes with stress testing. 2. Normal perfusion at stress/rest. 3. Low risk study. 4. EF > 60%. Signed by : Kyra Brandt, Electronically Approved : 01/16/2020 12:49:13
== END | disposition home or self-care (01) ==
LOC: NM 08:34
PROVIDERS: ATTEND Internal Medicine Cardiovascular Disease
DX: R25.2 Cramp and spasm (principal); R06.00 Dyspnea, unspecified; I10 Essential (primary) hypertension; E78.00 Pure hypercholesterolemia, unspecified; Z87.891 Personal history of nicotine dependence
CPT/HCPCS: 78452; 93017; A9500; J2785